=== PATIENT | female | born 1950 | race Hispanic/Latino ===

== ENCOUNTER 2023-08-05 19:52 | Emergency (ER) | payer OTHER ==
[~2023-08-05] VITALS: Ht 154.9 cm; Wt 40.8 kg
[2023-08-05 20:43] LABS: BASOPHILS # (AUTO) 0.02 K/uL (0.00-0.20); BASOPHILS % (AUTO) 0.3 % (0.0-5.0); EOSINOPHILS # (AUTO) 0.02 K/uL (0.00-0.70); EOSINOPHILS % (AUTO) 0.3 % (0.0-8.0); HEMATOCRIT 35.5 % (36-48); IMMATURE GRANULOCYTE ABSOLUTE 0.03 K/uL (0-1); LYMPHOCYTES # (AUTO) 1.6 K/uL (1.0-4.8); LYMPHOCYTES % (AUTO) 25.4 % (21.0-51.0); MEAN CORPUSCULAR HEMOGLOBIN 34.1 pg (27.0-33.0); MEAN CORPUSCULAR HGB CONC 34.1 g/dL (32.0-36.0); MONOCYTES # (AUTO) 0.3 K/uL (0.1-1.0); MONOCYTES % (AUTO) 5.4 % (3.0-13.0); NEUTROPHILS # (AUTO) 4.3 K/uL (1.8-7.7); NEUTROPHILS % (AUTO) 68.1 % (40.0-77.0); PLATELET COUNT (AUTO) 313 K/uL (130-400); RED BLOOD CELL COUNT(AUTO) 3.55 MIL/uL (4.00-5.50); RED CELL DISTRIBUTION WIDTH 13.3 % (11.0-15.5); WHITE BLOOD COUNT (AUTO) 6.3 K/uL (4.8-10.8)
[2023-08-05 20:57] LABS: ADD UA MICROSCOPIC YES; APPEARANCE,URINE CLOUDY (CLEAR); BILIRUBIN,URINE NEGATIVE (NEGATIVE); COLOR,URINE YELLOW (YELLOW); GLUCOSE, URINE (UA) NEGATIVE (NEGATIVE); KETONES,URINE 100 mg/dL (NEGATIVE); LEUKOCYTE ESTERASE ,URINE 250 Leu/uL (NEGATIVE); NITRATE,URINE 2+ (NEGATIVE); OCCULT BLOOD,URINE MODERATE (NEGATIVE); PROTEIN,URINE 50 mg/dL (NEGATIVE)
[2023-08-05 20:58] LABS: SARS-CoV-2, RNA, NAAT NEGATIVE SARS CoV-2 (NEGATIVE)
[2023-08-05 21:01] LABS: BACTERIA,URINE MOD /HPF (None Seen); MUCUS,URINE FEW LPF (None Seen); SQUAMOUS EPITHELIAL CELL,UR RARE /HPF (0-2); WBC CLUMP FEW /HPF (0-1); WBC,URINE TNTC /HPF (0-1)
[2023-08-05 21:03] LABS: INFLUENZA TYPE A Negative For Type A (NEGATIVE); INFLUENZA TYPE B Negative For Type B (NEGATIVE)
[2023-08-05 21:04] LABS: ALBUMIN 3.4 g/dL (3.5-5.0); BILIRUBIN,TOTAL 0.6 mg/dL (0.2-1.0); CREATININE 0.3 mg/dL (0.5-1.5); TOTAL PROTEIN, SERUM 6.4 g/dL (6.0-8.3)
[2023-08-05] MEDS ORDERED: GABA-534 PO (21:06)
[2023-08-05] MEDS ORDERED: EZET10TA48 PO (21:06)
[2023-08-05] MEDS ORDERED: METF-446 PO (21:07)
[2023-08-05] MEDS ORDERED: DULO20CA18 PO (21:07)
[2023-08-05] MEDS ORDERED: LISI5TAB21 PO (21:08)
[2023-08-05 21:12] LABS: POTASSIUM 2.9 mmol/L (3.5-5.1)
[2023-08-05] MEDS ORDERED: 0.9%NACL 1000ML 1,000 ML IV ONE (22:00)
[2023-08-05] MEDS ORDERED: ONDANSETRON 4MG INJ IVP ONE (22:00)
[2023-08-05] MEDS ORDERED: POTASSIUM CHLORIDE 10MEQ/100ML 100 ML IV SCH (22:00)
[2023-08-05] MEDS ORDERED: CEFTRIAXONE 1G VIAL IVPB ONE (22:00)
[2023-08-05] MEDS ORDERED: IOHEXOL-350 75 ML VIAL IV ONE (22:53)
[2023-08-06] MEDS ORDERED: CEFU500T67 PO (01:07)
[2023-08-06] MEDS ORDERED: DOCU-116 PO (01:07)
[2023-08-06] MEDS ORDERED: MAGNESIUM HYDROXIDE 30 ML/UDCUP PO SCH (01:30)
[2023-08-06 02:17] VITALS: BP 120/63; PULSE 54; RESP 18; O2SAT 98
== END 2023-08-06 02:18 | disposition home or self-care (01) ==
LOC: EDH 19:52
DX: N39.0 Urinary tract infection, site not specified (principal); K59.00 Constipation, unspecified; E87.6 Hypokalemia; Z20.822 Contact with and (suspected) exposure to COVID-19
CPT/HCPCS: 99285; 74177; 96365; 96366; 87635; 96375; 80053; 83690; 85025; 87077; 87088; 87186; 87804 ×2; 81001; 36415; 96368; C9803; J0696; J2405; Q9967; J3480